=== PATIENT | male | born 1985 | race Two or more races ===

== ENCOUNTER 2024-04-24 17:40 | Emergency (ER) | payer OTHER ==
[~2024-04-24] VITALS: Ht 175.3 cm; Wt 95.5 kg
[2024-04-24 18:49] LABS: COVID AG,FIA SOURCE NASAL SWAB
[2024-04-24 18:52] LABS: BASOPHILS % (AUTO) 0.7 % (0.0-2.0); EOSINOPHILS % (AUTO) 4.7 % (1.0-6.0); HEMATOCRIT 45.8 % (41-53); HEMOGLOBIN 15.9 g/dL (13.5-17.5); LYMPHOCYTES # (AUTO) 1.6 K/uL (1.0-4.8); LYMPHOCYTES % (AUTO) 17.4 % (22.0-44.0); MEAN CORPUSCULAR HEMOGLOBIN 29.9 pg (26.0-34.0); MEAN CORPUSCULAR HGB CONC 34.6 G/dL (31.0-37.0); MEAN CORPUSCULAR VOLUME 87 fL (80-100); MONOCYTES # (AUTO) 0.7 K/uL (0.1-1.0); MONOCYTES % (AUTO) 7.6 % (2.0-9.0); NEUTROPHILS # (AUTO) 6.4 K/uL (1.8-7.7); NEUTROPHILS % (AUTO) 69.6 % (40.0-70.0); PLATELET COUNT (AUTO) 321 K/uL (150-450); RED CELL DISTRIBUTION WIDTH 13.5 % (11.5-14.5); WHITE BLOOD COUNT (AUTO) 9.2 K/uL (4.5-11.0)
[2024-04-24 19:07] LABS: INFLUENZA TYPE A NEGATIVE FOR TYPE A (NEGATIVE); INFLUENZA TYPE B NEGATIVE FOR TYPE B (NEGATIVE); SARS-COV2 (COVID) ANTIGEN,FIA Negative (Negative)
[2024-04-24 19:08] LABS: TROPONIN I-HIGH SENSITIVITY 4 ng/L (<76)
[2024-04-24 19:10] LABS: CALCIUM, TOTAL 8.7 mg/dL (8.8-10.5); CARBON DIOXIDE 29 mmol/L (22-29); CREATININE 0.94 mg/dL (0.60-1.30); GLOMERULAR FILTR. RATE CALC > 60 mL/min (>60); GLUCOSE,RANDOM 121 mg/dL (70-110); UREA NITROGEN, BLOOD 15 mg/dL (7-18)
[2024-04-24 19:24] LABS: ANION GAP 11 mmol/L (8-16); CHLORIDE 96 mmol/L (98-107); POTASSIUM 3.3 mmol/L (3.5-5.1); SODIUM SERUM 136 mmol/L (136-145)
[2024-04-24] MEDS ORDERED: NICOTINE 7 MG/24 HOUR PATCH TD ONE (19:45)
[2024-04-24] MEDS ORDERED: IOHEXOL 350 MG/ML 100 ML VIAL ONE (20:42)
[2024-04-24] MEDS ORDERED: SODIUM CHLORIDE 0.9% 100 ML ONE (20:42)
[2024-04-24] MEDS ORDERED: BENZ-227 PO (21:16)
[2024-04-24] MEDS ORDERED: ALBU18HF12 IH (21:16)
[2024-04-24 22:12] LABS: TROPONIN I-HIGH SENSITIVITY 5 ng/L (<76)
[2024-04-24 22:50] VITALS: BP 147/103; PULSE 93; RESP 20; TEMP 98.3; O2SAT 97
[2024-04-24] MEDS: POTASSIUM CHLORIDE 20 MEQ ER TABLET PO ONE (23:12)
[2024-04-24] MEDS: IBUPROFEN 600 MG TABLET PO ONE (23:12)
[2024-04-24] MEDS: ALBUTEROL SULFATE HFA 90 MCG/PUFF 8 GM INHALER IH ONE (23:16)
== END 2024-04-24 23:36 | disposition home or self-care (01) ==
LOC: EMS 17:40
DX: R07.89 Other chest pain (principal); R06.02 Shortness of breath; F41.9 Anxiety disorder, unspecified; R68.83 Chills (without fever); R05.8 Other specified cough; I10 Essential (primary) hypertension; Z20.822 Contact with and (suspected) exposure to COVID-19
CPT/HCPCS: 99291; 71275; 71045; 87426; 80048; 84484; 85025; 85379; 87040; 87804; 94640; 71110; 93005; 36415; Q9967; J7050; J3535

== ENCOUNTER 2024-04-28 22:42 | Emergency (ER) | payer OTHER ==
[~2024-04-28] VITALS: Ht 165.1 cm; Wt 84.5 kg
[~2024-04-28 22:42] MED LIST: ALBU18HF12 IH; BENZ-227 PO
[2024-04-28 22:50] VITALS: TEMP 98.3
[2024-04-28 23:31] LABS: BASOPHILS % (AUTO) 0.6 % (0.0-2.0); EOSINOPHILS % (AUTO) 6.1 % (1.0-6.0); HEMATOCRIT 46.8 % (41-53); LYMPHOCYTES # (AUTO) 2.6 K/uL (1.0-4.8); LYMPHOCYTES % (AUTO) 22.9 % (22.0-44.0); MEAN CORPUSCULAR HEMOGLOBIN 29.7 pg (26.0-34.0); MEAN CORPUSCULAR HGB CONC 34.1 G/dL (31.0-37.0); MEAN CORPUSCULAR VOLUME 87 fL (80-100); MONOCYTES # (AUTO) 0.8 K/uL (0.1-1.0); MONOCYTES % (AUTO) 7.3 % (2.0-9.0); NEUTROPHILS # (AUTO) 7.1 K/uL (1.8-7.7); NEUTROPHILS % (AUTO) 63.1 % (40.0-70.0); PLATELET COUNT (AUTO) 347 K/uL (150-450); RED BLOOD CELL COUNT(AUTO) 5.37 MIL/uL (4.50-5.90); RED CELL DISTRIBUTION WIDTH 13.4 % (11.5-14.5); WHITE BLOOD COUNT (AUTO) 11.2 K/uL (4.5-11.0)
[2024-04-28] MEDS: FAMOTIDINE 20 MG/2 ML VIAL IVP ONE (23:37)
[2024-04-28] MEDS: ONDANSETRON HCL 4 MG/2 ML VIAL IVP ONE (23:37)
[2024-04-28] MEDS: SODIUM CHLORIDE 0.9% 1,000 ML IV ONE (23:37)
[2024-04-28] MEDS: ACETAMINOPHEN 500 MG TABLET PO ONE (23:38)
[2024-04-28 23:45] LABS: TROPONIN I-HIGH SENSITIVITY 5 ng/L (<76)
[2024-04-28 23:46] LABS: ANION GAP 9 mmol/L (8-16); CALCIUM, TOTAL 9.9 mg/dL (8.8-10.5); CARBON DIOXIDE 30 mmol/L (22-29); CHLORIDE 95 mmol/L (98-107); CREATININE 0.94 mg/dL (0.60-1.30); GLOMERULAR FILTR. RATE CALC > 60 mL/min (>60); GLUCOSE,RANDOM 120 mg/dL (70-110); POTASSIUM 3.6 mmol/L (3.5-5.1); SODIUM SERUM 134 mmol/L (136-145); UREA NITROGEN, BLOOD 23 mg/dL (7-18)
[2024-04-28 23:52] LABS: ALANINE AMINOTRANSFERASE 215 U/L (12-78); ALBUMIN 4.2 g/dL (3.4-5.0); ALKALINE PHOSPHATASE 73 U/L (46-116); ASPARTATE AMINOTRANSFERASE 95 U/L (15-37); BILIRUBIN,TOTAL 0.4 mg/dL (0.1-1.0); CREATINE KINASE, TOTAL ONLY 65 U/L (39-308); LIPASE 90 U/L (16-77); TOTAL PROTEIN, SERUM 9.2 g/dL (6.4-8.2)
[2024-04-28 23:55] LABS: B-TYPE NATRIURETIC PEPTIDE < 5 pg/mL (0-100)
[2024-04-29] MEDS ORDERED: IOHEXOL 350 MG/ML 100 ML VIAL ONE (00:05)
[2024-04-29] MEDS ORDERED: SODIUM CHLORIDE 0.9% 100 ML ONE (00:05)
[2024-04-29 00:52] LABS: COVID AG,FIA SOURCE NASAL SWAB
[2024-04-29 01:00] LABS: SARS-COV2 (COVID) ANTIGEN,FIA Negative (Negative)
[2024-04-29 01:07] LABS: APPEARANCE,URINE CLEAR (CLEAR); BILIRUBIN,URINE NEGATIVE (NEGATIVE); COLOR,URINE COLORLESS (YELLOW); GLUCOSE, URINE (UA) NEGATIVE (NEGATIVE); KETONES,URINE NEGATIVE (NEGATIVE); LEUKOCYTE ESTERASE ,URINE NEGATIVE (NEGATIVE); NITRATE,URINE NEGATIVE (NEGATIVE); OCCULT BLOOD,URINE TRACE (NEGATIVE); PH,URINE 6.5 (5.0-8.0); PROTEIN,URINE NEGATIVE (NEGATIVE); SPECIFIC GRAVITIY, URINE 1.038 (1.003-1.030); UROBILINOGEN,URINE <=1.0 mg/dL (<=1.0)
[2024-04-29 01:14] LABS: BACTERIA,URINE None Seen /HPF (None Seen); RBC,URINE 0-2 /HPF (0-2); WBC,URINE None Seen /HPF (0-5)
[2024-04-29 01:15] LABS: INFLUENZA TYPE A NEGATIVE FOR TYPE A (NEGATIVE); INFLUENZA TYPE B NEGATIVE FOR TYPE B (NEGATIVE)
[2024-04-29 01:15] LABS: SQUAMOUS EPITHELIAL CELL,UR Few /LPF (None Seen)
[2024-04-29] MEDS ORDERED: ONDA-104 PO (01:31)
[2024-04-29] MEDS ORDERED: AMOX-457 PO (01:31)
[2024-04-29] MEDS ORDERED: ACET-3385 PO (01:31)
[2024-04-29] MEDS: AMOX TR/POT CLAV 875 MG/125 MG TABLET PO ONE ×2 (02:08→02:19)
[2024-04-29 02:19] VITALS: BP 146/98; PULSE 87; RESP 16; O2SAT 96
== END 2024-04-29 02:21 | disposition home or self-care (01) ==
LOC: EMS 22:42
DX: J32.9 Chronic sinusitis, unspecified (principal); R10.9 Unspecified abdominal pain; R42 Dizziness and giddiness; R11.0 Nausea; I10 Essential (primary) hypertension; Z20.822 Contact with and (suspected) exposure to COVID-19
CPT/HCPCS: 99285; 70450; 96374; 71045; 96361; 96375; 87426; 80053; 81001; 82550; 83690; 83880; 84484; 85025; 87804; 36415; 74177; 93005; J3490; J2405; J7030; Q9967; J7050

== ENCOUNTER 2024-10-24 18:32 | Emergency (ER) | payer OTHER ==
[~2024-10-24] VITALS: Ht 165.1 cm; Wt 82.2 kg
[~2024-10-24 18:32] MED LIST changes: +ACET-3385 PO; +AMOX-457 PO; +ONDA-104 PO
[2024-10-24 18:53] VITALS: TEMP 98.2
[2024-10-24 19:39] VITALS: BP 162/109; PULSE 91; RESP 16; O2SAT 96
[2024-10-24] MEDS ORDERED: IBUP-1492 PO (20:17)
[2024-10-24] MEDS ORDERED: AZIT-164 PO (20:17)
== END 2024-10-24 20:15 | disposition home or self-care (01) ==
LOC: EMS 18:32
DX: H00.014 Hordeolum externum left upper eyelid (principal); I10 Essential (primary) hypertension
CPT/HCPCS: 99283; Z7502

== ENCOUNTER 2025-05-05 15:31 | Emergency (ER) | payer OTHER ==
[~2025-05-05] VITALS: Ht 165.1 cm; Wt 77.3 kg
[2025-05-05] MEDS: IBUPROFEN 600 MG TABLET PO ONE (18:24)
[2025-05-05 19:24] VITALS: BP 169/113; PULSE 92; RESP 16; TEMP 98.1; O2SAT 97
== END 2025-05-05 19:35 | disposition home or self-care (01) ==
LOC: EMS 15:31
DX: S63.92XA Sprain of unspecified part of left wrist and hand, initial encounter (principal); S80.02XA Contusion of left knee, initial encounter; F15.10 Other stimulant abuse, uncomplicated; E78.00 Pure hypercholesterolemia, unspecified; F41.9 Anxiety disorder, unspecified; I10 Essential (primary) hypertension
CPT/HCPCS: 99285; 73130-TC; 73562-TC; Z7502; Z7610